=== PATIENT | female | born 1950 ===

== ENCOUNTER 2024-01-11 11:45 | Inpatient (IN) | payer OTHER ==
[~2024-01-11] VITALS: Ht 154.9 cm; Wt 63.5 kg
[2024-01-11] MEDS ORDERED: GLUMETZA500 MG PO (13:22)
[2024-01-11] MEDS ORDERED: COZAAR50 MG PO (13:22)
[2024-01-11] MEDS ORDERED: XYZAL5 MG PO (13:24)
[2024-01-11] MEDS ORDERED: BUPROPION XL450 MG PO (13:25)
[2024-01-11] MEDS ORDERED: SINGULAIR10 MG PO (13:26)
[2024-01-11] MEDS ORDERED: TAMBOCOR150 MG PO (13:26)
[2024-01-11] MEDS ORDERED: RESTORIL30 M1 PO (13:27)
[2024-01-11] MEDS ORDERED: LIPITOR40 MG PO (13:27)
[2024-01-11] MEDS ORDERED: BUSPIRONE HCL10 MG PO (13:27)
[2024-01-11] MEDS ORDERED: PROBIOTIC1 EAC4 PO (13:27)
[2024-01-11] MEDS ORDERED: ADVAIR HFA 230/12 GM IH (13:29)
[2024-01-18] MEDS ORDERED: ERTAPENEM SODIUM 1,000 MG VIAL ONE (08:39)
[2024-01-18] MEDS ORDERED: BUPROPION XL150 MG (08:53)
[2024-01-18] MEDS ORDERED: FLUTICASONE-SA1 EAC6 (08:54)
[2024-01-18] MEDS ORDERED: VITAMIN D31250 MCG (08:54)
[2024-01-18] MEDS ORDERED: EZETIMIBE10 MG (08:54)
[2024-01-18] MEDS ORDERED: LEVALBUTEROL TA15 GM (08:54)
[2024-01-18] MEDS ORDERED: OMEPRAZOLE20 MG (08:54)
[2024-01-18] MEDS ORDERED: BUPIVACAINE HCL/PF 0.5% 30ML ML ONE ×2 (09:04→16:20)
[2024-01-18] MEDS ORDERED: LIDOCAINE HCL/EPINEPHRINE 10MG/ML 1% 50ML IJ ONE (09:04)
[2024-01-18] MEDS ORDERED: METHYLPREDNISOLONE SOD SUCC 125 MG VIAL ONE (16:19)
[2024-01-18] MEDS ORDERED: DIPHENHYDRAMINE HCL 50 MG/ML VIAL 1ML ONE (16:26)
[2024-01-18] MEDS ORDERED: DIPHENHYDRAMINE HCL 50 MG/ML VIAL 1ML IV ONE (19:15)
[2024-01-18] MEDS ORDERED: BUPIVACAINE HCL 30 ML VIAL IJ ONE (19:15)
[2024-01-18] MEDS ORDERED: METHYLPREDNISOLONE SOD SUCC 125 MG VIAL IV ONE (19:15)
[2024-01-18] MEDS ORDERED: ERTAPENEM SODIUM 1,000 MG VIAL IV ONE (19:15)
[2024-01-18] MEDS ORDERED: SUGAMMADEX SODIUM 200 MG/2 ML VIAL IV ONE ×2 (19:39→19:45)
[2024-01-18] MEDS ORDERED: OxyCODONE HCL 5 MG TABLET (ROXICODONE) PO PRN (20:00)
[2024-01-18] MEDS ORDERED: MORPHINE SULFATE 4 MG/ML CARTRIDGE IV PRN (20:00)
[2024-01-18] MEDS ORDERED: RINGERS SOLUTION,LACTATED 1,000 ML IV SCH (20:00)
[2024-01-18] MEDS ORDERED: ONDANSETRON HCL 2 MG/ML VIAL IV PRN (20:00)
[2024-01-18] MEDS ORDERED: ACETAMINOPHEN 500 MG GEL..CAP PO SCH (20:00)
[2024-01-18] MEDS ORDERED: SIMETHICONE 125 MG CAPSULE PO SCH (21:00)
[2024-01-18] MEDS ORDERED: FAMOTIDINE/PF 20 MG/2 ML VIAL IV PUSH SCH (21:00)
[2024-01-18 22:09] LABS: HEMATOCRIT 45.6 % (36.0-45.00); HEMOGLOBIN 15.3 g/dL (12.0-15.00); MEAN CELL VOLUME 87.1 fL (80.00-100.00); MEAN CORPUSCULAR HEMOGLOBIN 29.1 pg (27.00-32.0); MEAN CORPUSCULAR HGB CONC 33.4 g/dl (32.0-36.0); PLATELET COUNT 332 K/uL (150-450); RED BLOOD COUNT 5.24 M/uL (4.00-6.00); RED CELL DISTRIBUTION WIDTH 14.9 % (11.5-14.5)
[2024-01-19] MEDS ORDERED: METOCLOPRAMIDE HCL 5 MG/ML VIAL IV SCH (01:00)
[2024-01-19] MEDS ORDERED: GABAPENTIN 300 MG CAPSULE PO SCH (01:00)
[2024-01-19 05:35] LABS: HEMATOCRIT 41.3 % (36.0-45.00); HEMOGLOBIN 13.7 g/dL (12.0-15.00); MEAN CELL VOLUME 88.2 fL (80.00-100.00); MEAN CORPUSCULAR HEMOGLOBIN 29.3 pg (27.00-32.0); MEAN CORPUSCULAR HGB CONC 33.3 g/dl (32.0-36.0); PLATELET COUNT 296 K/uL (150-450); RED BLOOD COUNT 4.68 M/uL (4.00-6.00); RED CELL DISTRIBUTION WIDTH 14.2 % (11.5-14.5)
[2024-01-19 05:54] LABS: ALBUMIN 3.1 gm/dL (3.4-5.0); CALCIUM 8.8 mg/dL (8.5-10.1); CREATININE SERUM 0.84 mg/dL (0.55-1.02); GFR 66.84; POTASSIUM 4.66 mEq/L (3.5-5.1)
[2024-01-19 06:33] LABS: MAGNESIUM 1.3 mg/dL (1.8-2.4)
[2024-01-19] MEDS ORDERED: LACTOBACILLUS ACIDOPHILUS 1 CAP CAP PO SCH (09:00)
[2024-01-19] MEDS ORDERED: HYOSCYAMINE SULFATE 0.125 MG TAB.SUBL SL SCH (09:00)
[2024-01-19] MEDS ORDERED: POLYETHYLENE GLYCOL 3350 17 GM BLIST.PACK PO SCH (17:00)
[2024-01-19] MEDS ORDERED: ENOXAPARIN SODIUM 40 MG/0.4 ML SYRINGE SUBCUTANEO SCH (17:00)
[2024-01-19] MEDS ORDERED: INSULIN LISPRO 1,000 UNIT/10 ML UNITS SUBCUTANEO PRN (21:15)
[2024-01-19] MEDS ORDERED: DEXTROSE 50 % IN WATER 0.5 G/ML DISP.SYRIN IV PRN (21:15)
[2024-01-19] MEDS ORDERED: GABAPENTIN 300 MG CAPSULE PO PRN (21:34)
[2024-01-20] MEDS ORDERED: ENOXAPARIN SODIUM 40 MG/0.4 ML SYRINGE SUBCUTANEO SCH (09:00)
[2024-01-20] MEDS ORDERED: BUSPIRONE HCL 5 MG TABLET PO SCH (09:00)
[2024-01-20] MEDS ORDERED: BUPROPION HCL 150 MG TABLET.SA PO SCH (09:00)
[2024-01-20 09:02] LABS: HEMATOCRIT 37.9 % (36.0-45.00); HEMOGLOBIN 12.5 g/dL (12.0-15.00); MEAN CELL VOLUME 88.2 fL (80.00-100.00); MEAN CORPUSCULAR HEMOGLOBIN 29.1 pg (27.00-32.0); MEAN CORPUSCULAR HGB CONC 32.9 g/dl (32.0-36.0); PLATELET COUNT 278 K/uL (150-450); RED CELL DISTRIBUTION WIDTH 14.6 % (11.5-14.5)
[2024-01-20 09:22] LABS: CALCIUM 8.9 mg/dL (8.5-10.1); CREATININE SERUM 0.68 mg/dL (0.55-1.02); GFR 85.29; POTASSIUM 4.45 mEq/L (3.5-5.1)
[2024-01-20] MEDS ORDERED: FF) FLECAINIDE ACETATE 50MG TAB PO SCH (13:00)
[2024-01-20] MEDS ORDERED: ATORVASTATIN CALCIUM 40 MG TABLET PO SCH (17:00)
[2024-01-20] MEDS ORDERED: TEMAZEPAM 15 MG CAPSULE PO SCH (21:00)
[2024-01-21] MEDS ORDERED: INTESTINEX680 M1 PO (15:40)
[2024-01-21] MEDS ORDERED: LEVSIN/SL0.125 MG SL (15:40)
[2024-01-21] MEDS ORDERED: GAS RELIEF125 MG PO (15:41)
== END 2024-01-21 17:04 | disposition home or self-care (01) | DRG 331 ==
LOC: SURH 01-18 07:00 → O/R 01-18 08:00 → SURH 01-18 11:45 → SURG 01-18 21:02
PROVIDERS: ADMIT Surgery; ATTEND Surgery
PROC: 0DBP4ZZ Excision of Rectum, Percutaneous Endoscopic Approach (ICD-10-PCS; 2024-01-18)
PROC: 0DJD8ZZ Inspection of Lower Intestinal Tract, Via Natural or Artificial Opening Endoscopic (ICD-10-PCS; 2024-01-18)
PROC: 0DTN4ZZ Resection of Sigmoid Colon, Percutaneous Endoscopic Approach (ICD-10-PCS; principal; 2024-01-18 07:00)
DX: K57.32 Diverticulitis of large intestine without perforation or abscess without bleeding (principal); K62.4 Stenosis of anus and rectum; N73.6 Female pelvic peritoneal adhesions (postinfective); K52.9 Noninfective gastroenteritis and colitis, unspecified; K63.89 Other specified diseases of intestine; J45.20 Mild intermittent asthma, uncomplicated; Q63.2 Ectopic kidney; K59.02 Outlet dysfunction constipation; K64.8 Other hemorrhoids; E11.9 Type 2 diabetes mellitus without complications; I10 Essential (primary) hypertension